=== PATIENT | male | born 1960 | race Caucasian/White ===

== ENCOUNTER 2019-11-26 11:54 | Emergency (ER) | payer OTHER, SELFPAY ==
[2019-11-26 12:10] VITALS: BP 135/83; PULSE 80; RESP 16; TEMP 36.9; O2SAT 96; BMI 25.1
--- NOTE | 2019-11-26 12:22 | ED.ANIMALBIT ---
HPI - Animal Bite General Chief Complaint: Animal Bite Stated Complaint: cat bite Time Seen by Provider: 11/26/19 12:19 Source: patient Mode of arrival: ambulatory Limitations: no limitations History of Present Illness HPI narrative: Pleasant 58-year-old male with history of hypertension who presents today for wound check to his right forearm area from a cat bite that occurred 2 days ago on the evening of 11/24/2019 at home but his cat who is domesticated up-to-date on vaccinations. He had to superficial linear abrasion quinones relatively small on the mid forearm area which became slightly erythematous and tender for which he went to urgent care yesterday on the evening of 11/25/2019 at [facility] and prescribed Augmentin antibiotic and the wound was subsequently outlined and discharge precautions were provided. He has had total of 2 doses of antibiotics in the past 16 hours or so of Augmentin and he presents today ED as instructed if the redness goes I saw the quinones to come to the emergency room. He states that the site is slightly more tender and the redness has increased slightly. He otherwise denies any systemic symptoms. No fever no chills. No chest pain or shortness of breath. MD complaint: animal bite Onset (ago): day(s) Animal: cat Description of animal: household pet Mechanism: bite Location: other ( Right forearm) Pain description: dull Context: playing with animal Associated symptoms: none Treatments prior to arrival: antibiotic ointment and other ( augment) Related Data Patient tetanus UTD: Yes ( 2 years ago) Previous Rx's Medication Instructions Recorded doxycycline monohydrate 100 mg PO BID 10 Days #20 cap 11/26/19 Allergies Allergy/AdvReac Type Severity Reaction Status Date / Time No Known Allergies Allergy Verified 11/26/19 12:14 Review of Systems Review of Systems: Constitutional: No Weight loss, No Fever, No Chills, No Night Sweats, No Fatigue, No Malaise ENT/Mouth: No Hearing loss, No Ear Pain, No Nasal Congestion, No Sinus Pain, No Hoarseness, No sore throat, No Rhinorrhea, No Swallowing Difficulty Eyes: No Eye Pain, No Swelling, No Redness, No Foreign Body, No Discharge, No Vision Changes Cardiovascular: No Chest Pain, No SOB, No Dyspnea on Exertion, No Orthopnea, No Edema, No Palpitations Respiratory: No cough, wheezing Genitourinary: no irregular bleeding, No Dysuria, No Urinary Frequency, No Hematuria, No Urinary Incontinence, No Urgency, No Flank Pain, No Urinary Flow Changes, No Hesitancy Musculoskeletal: No joint pain, No Myalgias, No Joint Swelling Skin: As noted in HPI Neuro: No Weakness, No Numbness, No Paresthesias, No Loss of Consciousness, No Dizziness, No Headache Psych: No Social Issues Heme/Lymph: No Bruising, No Bleeding,No Lymphadenopathy Endocrine: No Polyuria, No Polydipsia, No Temperature Intolerance [facility] Past Medical History Attestation statement: The following information was validated with the patient. Medical History (Updated 11/26/19 @ 13:39 by Jose Parsons NP) No known health problems Social History Social History Advance Directives: No Advance Directives Information Provided: Yes Physical Exam Vital Signs: Vital Signs: Vital Signs Temp Pulse Resp BP Pulse Ox 11/26/19 12:10 98.5 F 80 16 135/83 96 Body Mass Index 25.1 Reviewed Const: General: cooperative and healthy appearing; No acute distress or intoxicated appearing Nutritional Appearance: average body habitus Orientation/consciousness: patient oriented x3 HENMT: Head: Yes normal to inspection Ears: hearing grossly normal bilaterally Eyes: General: appearance normal, both eyes and all related structures Visual Modi: normal visual modi by confrontation Chest: Chest palpation & inspection: normal inspection of the chest Resp: Effort & Inspection: normal respiratory effort Cardio: Jugular venous distension: no JVD : General: Yes no CVA tenderness Back/Spine/Pelvis: Back: no CVA tenderness Skin: Other: erythema to the mid forearm referred to picture Neuro: General: patient oriented x3 Extrem: General: Yes normal to inspection Course Course Course Narrative: Hemodynamically stable. Afebrile, nontoxic.labs overall stable. No leukocytosis. No lactic acidosis. Patient has had less than 24 hours of the antibiotics. at this time will be discharged home advised to continue antibiotics in addition will add on doxy. Will return in 24 hours for wound recheck. He is agreeable. Will nontoxic-appearing stable for discharge. MDM - Animal Bite Lab Data Result diagrams: 11/26/19 12:44 11/26/19 12:44 Labs: Lab Results 11/26/19 11/26/19 11/26/19 Range/Units 12:44 12:44 12:44 WBC 8.5 (4.8-10.8) X10*3/uL RBC 3.99 L (4.60-5.80) X10*6/uL Hgb 13.6 L (14.0-18.0) g/dl Hct 39.3 L (42-52) % MCV 98.5 H (80-98) fL MCH 34.1 H (27.0-33.0) pg MCHC 34.6 (31.0-36.0) g/dl RDW 11.7 (11.0-16.0) % Plt Count 160 (160-400) X10*3/uL MPV 8.7 L (9.4-12.4) fL Immature Gran % (Auto) 0.4 (0.0-0.4) % Neut % (Auto) 72.4 (45-73) % Lymph % (Auto) 14.4 L (20-40) % [place] % (Auto) 11.6 H (2-11) % Eos % (Auto) 0.7 (0-4) % Baso % (Auto) 0.5 (0-2) % Lymph # (Auto) 1.2 (1.2-4.9) X10*3/uL [place] # (Auto) 1.0 (0.1-1.2) X10*3/uL Eos # (Auto) 0.1 (0.0-0.4) X10*3/uL Baso # (Auto) 0.0 (0.0-0.2) X10*3/uL Abs Immat Gran (auto) 0.03 (0.00-0.03) X10*3/uL Absolute Neuts (auto) 6.1 (2.0-8.3) X10*3/uL Absolute Nucleated RBC 0.000 (0.0-0.012) X10*3/uL Nucleated RBC % (auto) 0.0 (0.0-0.2) /100WBC Sodium 134 L (135-145) mmol/L Potassium 4.1 (3.3-5.1) mmol/l Chloride 97 (96-108) mmol/L Carbon Dioxide 26 (22-29) mmol/L Anion Gap 15 (12-20) BUN 5 L (9-16) mg/dL Creatinine 0.68 (0.5-1.4) mg/dL Estim Creat Clear Calc 124.5 Estimated GFR > 60 Random Glucose 104 (60-115) mg/dL Lactic Acid 1.4 (0.5-2.0) mmol/L Calcium 8.9 (8.4-10.2) mg/dL Discharge Plan Discharge Clinical Impression: Cellulitis of forearm, right Cat bite Qualifiers: Encounter type: initial encounter Qualified Code(s): W55.01XA - Bitten by cat, initial encounter Patient Disposition: Home, Self-Care Instructions: Animal Bite (ED), Cellulitis (ED) Additional Instructions: please return in 48 hours for wound recheck return sooner if any concerns or worsening symptoms take your medication prescribed Thank you Prescriptions: New doxycycline monohydrate 100 mg capsule 100 mg PO BID 10 Days Qty: 20 RF: 0 Referrals: Mikala Jarrell MD [Primary Care Provider] - 2 days Jose Parsons NP [Emergency Midlevel Provider] - 2 days
[2019-11-26 12:55] LABS: MANUAL DIFF FLAG NO
[2019-11-26 12:56] LABS: Basophils Percent Auto 0.5 % (0-2); Eosinophils Absolute Auto 0.1 X10*3/uL (0.0-0.4); Eosinophils Percent Auto 0.7 % (0-4); Hematocrit 39.3 % (42-52); Hemoglobin 13.6 g/dl (14.0-18.0); Imm Gran Abs Auto 0.03 X10*3/uL (0.00-0.03); Imm Gran Pct Auto 0.4 % (0.0-0.4); Lymphocytes Absolute Auto 1.2 X10*3/uL (1.2-4.9); Lymphocytes Percent Auto 14.4 % (20-40); Mean Corpuscular HGB Conc 34.6 g/dl (31.0-36.0); Mean Corpuscular Hemoglobin 34.1 pg (27.0-33.0); Mean Corpuscular Volume 98.5 fL (80-98); Mean Platelet Volume 8.7 fL (9.4-12.4); Monocytes Percent Auto 11.6 % (2-11); Neutrophils Absolute Auto 6.1 X10*3/uL (2.0-8.3); Neutrophils Percent Auto 72.4 % (45-73); Platelet Count 160 X10*3/uL (160-400); Red Blood Count 3.99 X10*6/uL (4.60-5.80); Red Cell Distribution Width 11.7 % (11.0-16.0); White Blood Count 8.5 X10*3/uL (4.8-10.8)
[2019-11-26 13:24] LABS: Lactic Acid 1.4 mmol/L (0.5-2.0)
[2019-11-26 13:27] LABS: Anion Gap 15 (12-20); Blood Urea Nitrogen 5 mg/dL (9-16); Calcium 8.9 mg/dL (8.4-10.2); Carbon Dioxide 26 mmol/L (22-29); Chloride 97 mmol/L (96-108); Creatinine Clr Calc Pharmacy 124.5; Estimated Glomerular Filt Rate > 60; Glucose Random 104 mg/dL (60-115); Potassium 4.1 mmol/l (3.3-5.1); Sodium 134 mmol/L (135-145)
== END 2019-11-26 14:01 | disposition home or self-care (01) ==
PROVIDERS: Nurse Practitioner Primary Care; Emergency Provider Emergency Medicine; PCP Internal Medicine
DX: L03.113 Cellulitis of right upper limb (principal)
CPT/HCPCS: 36415; 80048; 83605; 85025; 87040; 99283

== ENCOUNTER 2020-05-12 13:36 | Emergency (ER) | payer OTHER, SELFPAY ==
--- NOTE | ~2020-05-12 | XR_ITS ---
EXAMINATION: XR FOOT, LEFT CLINICAL INFORMATION: Crush injury COMPARISON: None TECHNIQUE: AP, lateral, and oblique views of the left foot. FINDINGS: Horizontal radiolucent line through the middle phalanx fifth toe suggesting nondisplaced fracture. Mild degenerative osteoarthritic changes interphalangeal joints. There is a questionable subtle fracture through the neck of the second metatarsal. There is a small inferior calcaneal spur. XR/XR foot LT min 3V IMPRESSION: Probably a nondisplaced hairline fractures through the middle phalanx fifth toe and head of the second metatarsal. Underlying mild degenerative arthritis. Small inferior calcaneal spur.
[2020-05-12 13:40] VITALS: BP 145/79; PULSE 79; RESP 18; TEMP 36.8; O2SAT 97; BMI 25.0
--- NOTE | 2020-05-12 14:37 | ED.LOWEXIN ---
HPI - Extremity Injury (Lower) General Chief Complaint: Extremity Injury, Lower Stated Complaint: L FOOT INJ Time Seen by Provider: 05/12/20 14:37 History of Present Illness HPI Narrative: Patient complains of both pain and a cut to the top of his left foot when he dropped a radiator on it while doing a home repair, no numbness no weakness no tingling no other injury Related Data Previous Rx's Medication Instructions Recorded doxycycline monohydrate 100 mg PO BID 10 Days #20 cap 11/26/19 cephalexin 500 mg PO QID 7 Days #28 tab 05/12/20 Allergies Allergy/AdvReac Type Severity Reaction Status Date / Time No Known Allergies Allergy Verified 11/26/19 12:14 Review of Systems Review of Systems: Positive for laceration and injury to the left foot Negatives are no dizziness no weakness no numbness weakness or tingling no other extremity injury no other complaints [facility] Past Medical History Medical History (Updated 05/13/20 @ 00:01 by Background Daemon) No known health problems Social History Social History Advance Directives: No Advance Directives Information Provided: Yes Physical Exam Vital Signs: Vital Signs: Last Vital Signs Temp 98.3 F 05/12/20 13:40 Pulse 79 05/12/20 13:40 Resp 18 05/12/20 13:40 BP 145/79 H 05/12/20 13:40 Pulse Ox 97 05/12/20 13:40 Body Mass Index 25.0 General appearance no acute distress, comfortable cooperative Head is normocephalic atraumatic Neck is supple Respiratory no distress The left foot has a laceration on the dorsum of the foot that is 2 cm into subcutaneous tissue, neurovascular intact distal and tendon function is intact distal Course Course Course Narrative: 2 cm left foot laceration is cleansed and irrigated with normal saline, anesthesia was 6 cc of 1% lidocaine, no foreign body was seen, laceration was closed with 6 5 0 nylon sutures Dressing placed Bleeding controlled X-ray did show a fracture in the foot, it showed a nondisplaced hairline fracture through the middle phalanx 5th toe and the head of the 2nd metatarsal Patient given postop shoe and prophylactic antibiotics Discharge Plan Discharge Clinical Impression: Laceration of foot, left, Fracture of left foot Patient Disposition: Home, Self-Care Additional Instructions: X-ray showed a foot fracture so wear the postop shoe as directed so your toes are not constantly moving and aggravating the fracture Stitches should be removed in 10-14 days Because the large laceration could of allowed bacteria to get near the fracture we are putting you on antibiotic to prevent infection When taking this antibiotic, if possible take probiotics as they help prevent diarrhea that can be related to taking antibiotics We gave you tetanus shot Follow with orthopedist this week Return anytime for redness swelling fever discharge from wound, spreading redness, any sign of infection or any concerns Prescriptions: New cephalexin 500 mg tablet 500 mg PO QID 7 Days Qty: 28 RF: 0 No Action doxycycline monohydrate 100 mg capsule 100 mg PO BID 10 Days Qty: 20 RF: 0 Referrals: Lizzie Flores MD [Physician] - 2 days (Foot fracture, open with laceration repaired) Interventions: ED Discharge Assessment Last Done: 05/12/20 15:33 Discharge Date/Time: 05/12/20 15:35
[2020-05-12] MEDS: Lidocaine HCl 1 % MPF 5 ML VIAL SUBCUT ×2 (14:48)
[2020-05-12] MEDS: Diphth,Pertus(ACell),Tet Adult 0.5 ML SYRINGE IM (14:48)
== END 2020-05-12 15:35 | disposition home or self-care (01) ==
PROVIDERS: Emergency Provider Emergency Medicine; PCP Internal Medicine
DX: S92.525A Nondisplaced fracture of middle phalanx of left lesser toe(s), initial encounter for closed fracture (principal); W20.8XXA Other cause of strike by thrown, projected or falling object, initial encounter; Y93.E9 Activity, other interior property and clothing maintenance; Y92.019 Unspecified place in single-family (private) house as the place of occurrence of the external cause; Y99.9 Unspecified external cause status; S91.312A Laceration without foreign body, left foot, initial encounter
CPT/HCPCS: 12001; 73630; 90471; 90715; 99283; 99284

== ENCOUNTER 2022-09-19 11:22 | Emergency (ER) | payer OTHER, SELFPAY ==
[2022-09-19 12:20] VITALS: BP 128/90; PULSE 111; RESP 18; TEMP 37.3; O2SAT 96; BMI 24.7
--- NOTE | 2022-09-19 12:22 | ECG_ITS ---
Test Reason : ACCUTE BL LOSS Blood Pressure : / mmHG Vent. Rate : 093 BPM Atrial Rate : 093 BPM P-R Int : 168 ms QRS Dur : 086 ms QT Int : 340 ms P-R-T Axes : 057 019 051 degrees QTc Int : 422 ms Normal sinus rhythm Inferior infarct , age undetermined Abnormal ECG When compared with ECG of 25-MAY-2013 19:12, Inferior infarct is now Present Referred By: Clinton Tovar Electronically Signed By:Jeffery Quan
--- NOTE | 2022-09-19 12:42 | ED_ITS ---
HPI - GI Bleed General Chief complaint: GI Bleed Stated complaint: blood in stool Related Data Home Medications ?Medication ?Instructions ?Recorded ?Confirmed amlodipine 5 mg tablet 5 mg PO DAILY 08/16/22 08/16/22 lisinopril 10 mg tablet 10 mg PO DAILY 08/16/22 08/16/22 propranolol 10 mg tablet 10 mg PO BID 08/16/22 08/16/22 Previous Rx's ?Medication ?Instructions ?Recorded azithromycin 250 mg tablet See Rx Instructions PO .COMPLEX #6 12/02/22 tabs Allergies Allergy/AdvReac Type Severity Reaction Status Date / Time No Known Allergies Allergy Verified 12/02/22 12:42 [facility] Past Medical History Medical History (Updated 07/29/23 @ 10:21 by TREVOR Nichols) Cough present for greater than 3 weeks No known health problems Social History Social History Patient Tobacco Use Status: Never used Tobacco Physical Exam 2 Vital Signs: Vital Signs: Last Vital Signs Temp 99.1 F 09/19/22 12:20 Pulse 111 H 09/19/22 12:20 Resp 18 09/19/22 12:20 BP 128/90 H 09/19/22 12:20 Pulse Ox 96 09/19/22 12:20 O2 Del Method Room Air 09/19/22 12:20 BMI result Body Mass Index 24.7 Course Course Course Narrative: This is an RME: Additional HPI, ROS, PE not included below will be deferred to primary provider. 61 yo m presents w/ LGIB for the past few days w/ a/c syncope and head strike. Large amount of dark red blood. Last colonoscopy 5 years ago and wnl. No fam hx of colorectal cancer. No hx of diverticulits. No fevers or chills Plan- labs, imaging, obs, Medical Decision Making Lab Data 09/19/22 12:42 09/19/22 12:42 Labs: Lab Results 09/19/22 Range/Units 12:42 WBC 10.1 (4.8-10.8) X10*3/uL RBC 4.21 L (4.60-5.80) X10*6/uL Hgb 14.3 (14.0-18.0) g/dl Hct 40.6 L (42.0-52.0) % MCV 96.4 (80.0-98.0) fL MCH 34.0 H (27.0-33.0) pg MCHC 35.2 (31.0-36.0) g/dl RDW 12.4 (11.0-16.0) % Plt Count 180 (160-400) X10*3/uL MPV 8.5 L (9.4-12.4) fL Immature Gran % (Auto) 0.5 H (0.0-0.4) % Neut % (Auto) 79.9 H (45-73) % Lymph % (Auto) 10.2 L (20-40) % [place] % (Auto) 8.6 (2-11) % Eos % (Auto) 0.3 (0-4) % Baso % (Auto) 0.5 (0-2) % Lymph # (Auto) 1.0 L (1.2-4.9) X10*3/uL [place] # (Auto) 0.9 (0.1-1.2) X10*3/uL Eos # (Auto) 0.0 (0.0-0.4) X10*3/uL Baso # (Auto) 0.1 (0.0-0.2) X10*3/uL Abs Immat Gran (auto) 0.05 H (0.00-0.03) X10*3/uL Absolute Neuts (auto) 8.1 (2.0-8.3) x10*3/uL Absolute Nucleated RBC 0.000 (0.0-0.012) X10*3/uL Nucleated RBC % (auto) 0.0 (0.0-0.2) /100WBC PT 13.4 H (11.1-13.3) SEC INR 1.1 (0.9-1.1) Sodium 132 L (135-145) mmol/L Potassium 4.4 (3.3-5.1) mmol/L Chloride 96 (96-108) mmol/L Carbon Dioxide 25 (22-29) mmol/L Anion Gap 15 (12-20) BUN 4 L (9-16) mg/dL Creatinine 0.72 (0.5-1.4) mg/dL Estim Creat Clear Calc 116.7 Estimated GFR > 60 Random Glucose 94 (60-115) mg/dL Calcium 9.6 D (8.4-10.2) mg/dL Magnesium 1.8 (1.6-2.6) mg/dL Total Bilirubin 0.7 (0.0-1.0) mg/dL AST 89 H (5-37) U/L ALT 70 H (0-40) U/L Alkaline Phosphatase 54 (39-117) U/L Total Protein 8.2 H (6.5-8.0) g/dL Albumin 4.5 (3.5-5.0) g/dL Lipase 22 (8-78) U/L COVID-19 (CARL) Negative (Negative) COVID-19 Clin Com See Note Discharge Plan Discharge Clinical Impression: Eloped from emergency department Patient Disposition: Elopement Prescriptions: No Action lisinopril 10 mg tablet 10 mg PO DAILY amlodipine 5 mg tablet 5 mg PO DAILY propranolol 10 mg tablet 10 mg PO BID azithromycin 250 mg tablet See Rx Instructions PO .COMPLEX Qty: 6 0RF Rx Instructions: For 250 mg dose pack: take 500 mg today (day 1), then 250 mg for 4 days (days 2-5) PO Interventions: ED Discharge Assessment Last Done: 09/19/22 16:11 Discharge Date/Time: 09/19/22 16:11 Print Language: U[place]
--- NOTE | 2022-09-19 12:45 | MHC.EDTECH ---
Pt could not urinate at this time. He is aware we need a urine sample. SG
[2022-09-19 12:46] LABS: MANUAL DIFF FLAG NO
[2022-09-19 12:48] LABS: Basophils Absolute Auto 0.1 X10*3/uL (0.0-0.2); Basophils Percent Auto 0.5 % (0-2); Eosinophils Percent Auto 0.3 % (0-4); Hematocrit 40.6 % (42.0-52.0); Hemoglobin 14.3 g/dl (14.0-18.0); Imm Gran Abs Auto 0.05 X10*3/uL (0.00-0.03); Imm Gran Pct Auto 0.5 % (0.0-0.4); Lymphocytes Percent Auto 10.2 % (20-40); Mean Corpuscular HGB Conc 35.2 g/dl (31.0-36.0); Mean Corpuscular Volume 96.4 fL (80.0-98.0); Mean Platelet Volume 8.5 fL (9.4-12.4); Monocytes Absolute Auto 0.9 X10*3/uL (0.1-1.2); Monocytes Percent Auto 8.6 % (2-11); Neutrophils Absolute Auto 8.1 x10*3/uL (2.0-8.3); Neutrophils Percent Auto 79.9 % (45-73); Platelet Count 180 X10*3/uL (160-400); Red Blood Count 4.21 X10*6/uL (4.60-5.80); Red Cell Distribution Width 12.4 % (11.0-16.0); White Blood Count 10.1 X10*3/uL (4.8-10.8)
[2022-09-19 12:59] LABS: INTERNATIONAL NORM RATIO 1.1 (0.9-1.1); Prothrombin Time 13.4 SEC (11.1-13.3)
[2022-09-19 13:06] LABS: COVID-19 Test Negative (Negative); IDNOW Serial# 08D9AD1C
[2022-09-19 13:11] LABS: Alanine Aminotransferase 70 U/L (0-40); Albumin Level 4.5 g/dL (3.5-5.0); Alkaline Phosphatase 54 U/L (39-117); Anion Gap 15 (12-20); Aspartate Amino Transferase 89 U/L (5-37); Bilirubin Total 0.7 mg/dL (0.0-1.0); Blood Urea Nitrogen 4 mg/dL (9-16); Calcium 9.6 mg/dL (8.4-10.2); Carbon Dioxide 25 mmol/L (22-29); Chloride 96 mmol/L (96-108); Creatinine Clr Calc Pharmacy 116.7; Estimated Glomerular Filt Rate > 60; Glucose Random 94 mg/dL (60-115); Lipase 22 U/L (8-78); Magnesium 1.8 mg/dL (1.6-2.6); Potassium 4.4 mmol/L (3.3-5.1); Sodium 132 mmol/L (135-145); Total Protein 8.2 g/dL (6.5-8.0)
== END 2022-09-19 16:11 | disposition left against medical advice (07) ==
PROVIDERS: Physician Assistant; Emergency Provider Emergency Medicine; PCP Internal Medicine
DX: K92.1 Melena (principal); K92.2 Gastrointestinal hemorrhage, unspecified; Z20.822 Contact with and (suspected) exposure to COVID-19
CPT/HCPCS: 36415; 80053; 83690; 83735; 85025; 85610; 87635; 93005; 99283

== ENCOUNTER → 2022-09-19 12:22 | Outpatient (BNV) | payer OTHER, SELFPAY | PROVIDERS: Emergency Provider Emergency Medicine; PCP Internal Medicine; Visit Provider Internal Medicine Cardiovascular Disease | DX: R94.31 Abnormal electrocardiogram [ECG] [EKG] (principal) | CPT/HCPCS: 93010 ==

== ENCOUNTER 2022-12-02 12:19 | Outpatient (AMB) | payer OTHER, SELFPAY ==
[2022-12-02 12:42] VITALS: BP 142/84; PULSE 100; TEMP 37.1; O2SAT 96; BMI 25.0
--- NOTE | 2022-12-02 12:42 | MHC.OFFWIV ---
Intake Vital Signs 12/02/22 12:42 Height 6 ft Weight 184 lb BMI 25.0 BP 142/84 H Blood Pressure Location Lt brachial Position Sitting Pulse 100 Pulse Source Pulse Oximeter Temp 98.8 F Temp Source Temporal Artery Scan Pulse Oximetry (%) 96 Intake Visit Reasons: EP, cough ([phone]) Intake Note: pt is here for c/o cough 4-5 weeks Patient Tobacco Use Status: Never used Tobacco Allergies No Known Allergies Allergy (Verified 12/02/22 12:42) Do you need a note to return to daycare/school/sports/work: Yes HPI EP, cough ([phone]) HPI Details A 61-year-old male in for a sick visit. Patient reports symptoms of cough for 4-5 weeks, and postnasal drip. The cough is most productive in the morning otherwise the patient describes the cough as being dry throughout the day. Little relief with the cetirizine, fluticasone spray and Mucinex DM. Denies fever and shortness of breath. [facility] Medical History (Updated 12/02/22 @ 13:34 by KYLER Parham) Cough present for greater than 3 weeks No known health problems Social History Patient Tobacco Use Status: Never used Tobacco Review of Systems ENT Reports nasal congestion and Reports post nasal drip Resp Reports chest congestion and Reports cough Physical Exam Vital Signs: Last Vital Signs Temp 98.8 F 12/02/22 12:42 Pulse 100 12/02/22 12:42 BP 142/84 H 12/02/22 12:42 Pulse Ox 96 12/02/22 12:42 BMI result Body Mass Index 25.0 Const Other: Patient is alert and oriented x3. No acute distress Orientation/consciousness: patient oriented x3 HEENT Ears: TM's normal bilaterally General nose exam: Nasal discharge present (Clear) clear Throat: Yes postnasal drainage Neck Neck: Yes no lymphadenopathy Resp Effort & Inspection: Actively coughing Auscultation: clear to auscultation bilaterally Neuro General: patient oriented x3 Assessment & Plan Assessment & Plan (1) Cough present for greater than 3 weeks: Code(s): R05.8 - Other specified cough Plan: Patient instructed to continue taking fluticasone nasal spray and Zyrtec as prescribed and to stay hydrated. Educated to continue entire course of antibiotics and that if he develops a fever he may need chest x-ray. Coding Level of Care Code Est Pt Level 3 (02560) Diagnoses Cough present for greater than 3 weeks R05.8
== END 2022-12-02 13:27 | disposition home or self-care (01) ==
PROVIDERS: PCP Internal Medicine; Visit Provider Nurse Practitioner Primary Care
DX: R05.8 Other specified cough (principal)
CPT/HCPCS: 99213